=== PATIENT | female | born 1980 | race Caucasian/White ===

== ENCOUNTER 2017-09-11 17:03 | Day surgery (SDC) | payer OTHER ==
[~2017-09-11] VITALS: Ht 165.1 cm; Wt 61.7 kg
[~2017-09-11 17:03] MED LIST: AMBIEN 10MG10 MG PO; AMBIEN5 MG PO; BACTRIM DS 8001 TAB PO; DEXILANT30 MG PO; DIUREX WATER PI1 TAB PO; HCTZ 25MG TAB25 MG PO; HIPREX PO; LO/OVRAL1 TAB PO; MACROBID 1100 MG/CAP PO; MACROBID100 MG PO; NEXIUM 40MG40 MG PO; TYLENOL EXTRA500 M1 PO; ULTRAM 50MG TAB50 MG PO; ZANTAC; ZOFRAN8 MG PO; ZOLOFT; [UNRECOGNIZED DRUG - OTHER] PO
[2017-09-11] MEDS ORDERED: WELLBUTRIN XL150 MG PO (17:53)
[2017-09-11] MEDS ORDERED: MACRODANTIN50 MG/CA1 PO (17:54)
[2017-09-11] MEDS ORDERED: FLEXERIL5 MG PO (17:54)
[2017-09-11] MEDS ORDERED: VALTREX1 GM PO (17:55)
[2017-09-11] MEDS ORDERED: CRANBERRY500 M3 PO (17:56)
[2017-09-11] MEDS ORDERED: MOTRIN 800800 MG/TAB PO (17:56)
[2017-09-11] MEDS ORDERED: MULTI VITAMINS1 TAB PO (17:57)
[2017-09-11] MEDS ORDERED: EPA FISH OIL1 SGL PO (17:57)
[2017-09-11 18:26] VITALS: BP 114/74; PULSE 79; TEMP 98.9
[2017-09-11 18:48] LABS: BASO # 0.1 (0.0-0.2); BASO % 0.6 % (0.0-2.0); EOS # 0.3 (0.0-0.7); EOS % 3.3 % (0-4.0); GRAN # 3.8 (1.4-6.5); GRAN % 47.4 % (42.2-75.2); HEMATOCRIT 37.3 % (37.0-47.0); HEMOGLOBIN 12.5 g/dl (12.5-16.0); LYMPH # 3.3 (1.2-3.4); LYMPH % 41.7 % (20.0-51.0); MEAN CELL VOLUME 87 fl (80.0-100.0); MEAN CORPUSCULAR HEMOGLOBIN 29 pg (27.0-31.0); MEAN CORPUSCULAR HGB CONC 34 g/dl (33.0-37.0); MEAN PLATELET VOLUME 8.9 fl (7.4-10.4); MONO # 0.5 (0.1-0.6); MONO % 6.2 % (1.7-9.3); PLATELET COUNT 346 K/mm3 (130-400); RED BLOOD COUNT 4.28 M/mm3 (4.10-5.30); REDCELL DISTRIBUTION WIDTH-CV 12.5 % (11.5-14.5)
[2017-09-11 18:51] LABS: ALBUMIN 4.4 gm/dL (3.5-5.0); BILIRUBIN,TOTAL 0.4 mg/dL (0.0-1.0); CREATININE, serum 0.5 mg/dL (0.52-1.25); TOTAL PROTEIN 7.6 gm/dL (6.4-8.2)
[2017-09-12 05:18] VITALS: BP 107/71; PULSE 105; TEMP 97.7
[2017-09-12 13:34] VITALS: BP 121/66; PULSE 104; TEMP 97.6
== END 2017-09-12 16:06 | disposition home or self-care (01) ==
LOC: SURG 17:03 → SDCO 17:03
PROVIDERS: Internal Medicine Gastroenterology
DX: R19.7 Diarrhea, unspecified (principal); K92.1 Melena; K21.0 Gastro-esophageal reflux disease with esophagitis; Z80.0 Family history of malignant neoplasm of digestive organs; G82.20 Paraplegia, unspecified; N31.9 Neuromuscular dysfunction of bladder, unspecified; Z88.8 Allergy status to other drugs, medicaments and biological substances; Z85.828 Personal history of other malignant neoplasm of skin; F32.9 Major depressive disorder, single episode, unspecified
CPT/HCPCS: OP; G0378; J2704; J7030